=== PATIENT | male | born 2005 | race Caucasian/White ===

== ENCOUNTER → 2024-10-12 13:40 | Outpatient (REF) | payer BC, SELFPAY | LOC: MRI 3T 13:40 | PROVIDERS: ATTENDING PHYSICIAN Orthopaedic Surgery; FAMILY PHYSICIAN Student in an Organized Health Care Education/Training Program | DX: M25.512 Pain in left shoulder (principal) | CPT/HCPCS: 23350; 73040; 73222 ==

== ENCOUNTER 2024-11-04 06:07 | Day surgery (SDC) | payer BC, SELFPAY ==
[2024-11-04] VITALS (8 sets, daily range): BP systolic 132–148; BP diastolic 70–89; BMI 34.1
[2024-11-04] MEDS: TYLENOL 1000 MG PO (06:37)
[2024-11-04] MEDS: CELEBREX 200 MG PO (06:37)
[2024-11-04] MEDS: NORMOSOL-R/PLASMALYTE-A 1000 IV (06:37)
== END 2024-11-04 11:38 | disposition home or self-care (01) ==
LOC: SDS 06:07
PROVIDERS: ATTENDING PHYSICIAN Orthopaedic Surgery
DX: S43.432A Superior glenoid labrum lesion of left shoulder, initial encounter (principal); X58.XXXA Exposure to other specified factors, initial encounter
CPT/HCPCS: 29806